=== PATIENT | male | born 1965 | race Asian ===

== ENCOUNTER → 2024-12-17 14:06 | Outpatient (CLI) | payer OTHER, SELFPAY ==
--- NOTE | 2024-12-17 14:10 | DI.CT.S_ITS ---
PROCEDURE: CT LUNG LOW DOSE SCREENING INDICATIONS: hx of tobacco use TECHNIQUE: Noncontrast 2.0-2.5 mm thick sections acquired from the pulmonary apices to the posterior costophrenic angles. 7 mm thick axial MIP, and 5 mm coronal and sagittal reformats were then acquired. For radiation dose reduction, the following was used: automated exposure control, adjustment of mA and/or kV according to patient size. COMPARISON: None. FINDINGS: Image quality: Diagnostic. Lower Neck: No enlarged lymph nodes. Thyroid: No thyroid nodules which require sonographic follow up, per consensus guidelines. Axillae: No enlarged lymph nodes. Chest Wall: Unremarkable. Bones: No aggressive appearing bony lesions. Lungs and Pleura: No pneumothorax or pleural effusions. No consolidations. 3 mm solid nodule in anterior periphery of right upper lobe series 3, image 108. 5 mm solid nodule in anterior right upper lobe series 3, image 138. 2 mm solid nodule in right upper lobe series 3, image 137. 5 mm solid nodule in right middle lobe series 3, image 151 5 mm solid nodule in posterior medial aspect of right lower lobe series 3, image 192. 3 mm solid nodule is seen in right lower lobe posterior aspect air is 3 image 181. No suspicious left lung nodule is seen. Heart: Heart size is normal. No pericardial effusion. Thoracic Vessels: The aorta and pulmonary arteries demonstrate normal size. 2 vessel coronary artery atherosclerotic calcifications are seen. Mediastinum and Marilou: No enlarged lymph nodes. Esophagus: No wall thickening. No hiatal hernia. Upper Abdomen: Visualized upper abdomen solid organs and bowel loops appear normal. IMPRESSION: Multiple right-sided pulmonary nodules measures up to 5 mm in size as described above. No suspicious pulmonary nodules are noted. LUNG-RADS 2; continued annual screening, if eligible. Clinically Significant Non-pulmonary Findings: Moderate 2 vessel coronary artery atherosclerotic calcifications. Dictated by: Randy Craven M.D. on 12/17/2024 at 18:48 Approved by: Randy Craven M.D. on 12/17/2024 at 18:55
== END ==
PROVIDERS: Referring Provider Family Medicine; Visit Provider Family Medicine
DX: Z12.2 Encounter for screening for malignant neoplasm of respiratory organs (principal); Z87.891 Personal history of nicotine dependence; R91.8 Other nonspecific abnormal finding of lung field; I25.10 Atherosclerotic heart disease of native coronary artery without angina pectoris
CPT/HCPCS: 71271

== ENCOUNTER → 2025-03-27 14:50 | Outpatient (CLI) | payer OTHER, SELFPAY ==
[2025-03-27 15:53] LABS: Add Manual Diff / Slide Review NO; Hematocrit 48.4 % (41-53); Hemoglobin 16.7 g/dL (13.5-17.5); Lymphocytes Absolute Auto 2000 /uL (1100-4500); Mean Corpuscular HGB Conc 34.4 % (30-36); Mean Corpuscular Hemoglobin 30.9 PG (26-34); Mean Corpuscular Volume 89.7 fL (80-100); Platelet Count 239 X10^3/uL (150-400)
== END ==
PROVIDERS: Referring Provider Internal Medicine; Visit Provider Internal Medicine
DX: R06.02 Shortness of breath (principal)
CPT/HCPCS: 36415; 85025

== ENCOUNTER → 2025-04-23 12:12 | Outpatient (CLI) | payer OTHER, SELFPAY ==
[2025-04-25 19:11] LABS: Alder IgE <0.10 kU/L (Class 0); Alternaria alternata IgE <0.10 kU/L (Class 0); Box Elder IgE <0.10 kU/L (Class 0); Codfish Allergy IgE < 0.10 kU/L (Class 0); D farinae IgE <0.10 kU/L (Class 0); D pteronyssinus IgE <0.10 kU/L (Class 0); Hazelnut IgE <0.10 kU/L (Class 0); Mouse Urine Proteins IgE <0.10 kU/L (Class 0); Pigweed, Common IgE <0.10 kU/L (Class 0); Ragweed, Short 0.23 kU/L (Class 0/I); Salmon Allergy IgE < 0.10 kU/L (Class 0); Scallop Allergy IgE < 0.10 kU/L (Class 0); Sesame seed Allergy IgE < 0.10 kU/L (Class 0); Tuna Allergy IgE < 0.10 kU/L (Class 0); Walnut Allery IgE < 0.10 kU/L (Class 0); Wheat Allergy IgE < 0.10 kU/L (Class 0)
== END ==
PROVIDERS: Referring Provider Internal Medicine; Visit Provider Internal Medicine
DX: Z91.09 Other allergy status, other than to drugs and biological substances (principal)
CPT/HCPCS: 36415; 82785; 86003

== ENCOUNTER 2025-08-19 09:04 | Emergency (ER) | payer OTHER, SELFPAY ==
[2025-08-19 09:17] VITALS: BP 163/82; PULSE 85; RESP 18; TEMP 36.2; O2SAT 96; BMI 29.0
--- NOTE | 2025-08-19 09:22 | ED.EYEPROB ---
HPI - Eye Problem General Chief complaint: Eye Problems Stated complaint: swollen Left eye 3 days Time Seen by Provider: 08/19/25 09:18 History of Present Illness HPI Narrative: Patient is a 59-year-old man who presents with 1 day history of right upper eyelid swelling. He denies any vision changes, eye pain, no headaches. Related Data Home Medications ?Medication ?Instructions ?Recorded ?Confirmed aspirin 81 mg tablet 81 mg PO DAILY 03/27/25 05/25/25 empagliflozin 10 mg tablet 10 mg PO DAILY 03/27/25 05/25/25 (Jardiance) hydrochlorothiazide 25 mg tablet 25 mg PO DAILY 03/27/25 05/25/25 metoprolol succinate 25 mg 25 mg PO DAILY 03/27/25 05/25/25 tablet,extended release 24 hr nitroglycerin 0.3 mg sublingual 0.3 mg sublingual ONCE 03/27/25 05/25/25 tablet olopatadine 0.1 % eye drops drp EYE-BOTH 03/27/25 05/25/25 rosuvastatin 5 mg tablet 5 mg PO DAILY 03/27/25 05/25/25 sitagliptin phos 50 mg-metformin 2 tab PO DAILY 03/27/25 05/25/25 ER 1,000 mg tablet,extend rel 24h mp (Janumet XR) valsartan 160 mg tablet 160 mg PO BID 03/27/25 05/25/25 Previous Rx's ?Medication ?Instructions ?Recorded fluticasone fur. 200 mcg-umeclid 1 inh inhalation DAILY #60 ea 05/25/25 62.5 mcg-vilant 25 mcg inhalat.powder (Trelegy Ellipta) Allergies Allergy/AdvReac Type Severity Reaction Status Date / Time No Known Drug Allergies Allergy Verified 08/19/25 09:19 Review of Systems Review of Systems ROS Unobtainable: All systems reviewed & are unremarkable except as noted in HPI and below Patient History Social History Smoking Status: Former smoker Exam Narrative Exam Narrative: Vitals:? Afebrile, hypertensive, all other vitals within normal range. Gen:? Well-developed, well-nourished, no acute distress Eye: Pupils equal round and reactive, EOMI without any pain, left upperwith a localized, tender, erythematous nodule consistent with a hordeolum. There is mild surrounding eyelid edema present. No fluctuance or purulent drainage noted. No conjunctival injection or chemosis. No proptosis, visual acuity grossly intact. Cards:? Regular Pulm:? No increased work of breathing Abd:? Nondistended Neuro:? A&O x4, cranial nerves grossly intact, moving all 4 extremities spontaneously Psych:? Appropriate Initial Vital Signs Initial Vital Signs: Vital Signs Temperature 97.2 F L 08/19/25 09:17 Pulse Rate 85 08/19/25 09:17 Respiratory Rate 18 08/19/25 09:17 Blood Pressure 163/82 H 08/19/25 09:17 Pulse Oximetry 96 08/19/25 09:17 Oxygen Delivery Method Room Air 08/19/25 09:17 MDM - Eye Problem MDM Narrative Medical decision making narrative: The patient presents with a one day history of localized eyelid swelling and tenderness consistent with a hordeolum. Differential diagnosis considered includes chalazion, preseptal cellulitis, orbital cellulitis, allergic reaction, and conjunctivitis. On exam, swelling is confined to the eyelid margin with a focal tender nodule, no fluctuance, no purulent drainage, no conjunctival injection, no pain with extraocular movements, and no visual changes, making orbital or preseptal cellulitis unlikely. No imaging or laboratory studies were indicated based on the benign appearance and absence of systemic symptoms. Warm compresses and supportive care were discussed. The patient was advised that symptoms typically improve over several days. The presentation is most consistent with an uncomplicated external hordeolum. Disposition / ED Course Summary: The patient remained well appearing and hemodynamically stable throughout the visit. Exam findings were consistent with an uncomplicated external hordeolum without evidence of preseptal or orbital cellulitis. No imaging or laboratory studies were indicated. Symptoms improved with supportive care in the ED. The patient is appropriate for discharge with outpatient management. Discharge Instructions / Return Precautions: Warm compresses were recommended several times daily. The patient was advised to avoid squeezing or manipulating the lesion. He was instructed to return for worsening swelling, spreading redness, fever, vision changes, pain with eye movement, inability to open the eye, or any new concerning symptoms. Follow up with primary care or ophthalmology was recommended if symptoms do not improve over the next few days. Discharge Plan Departure Patient Disposition: Home Clinical Impression: Hordeolum external Instructions: DI for Hordeolum Activity Restrictions/Additional Instructions: You were seen in the ER for left eye swelling. And diagnosed with: You have a hordeolum, commonly called a stye. It?s a small, localized infection of an eyelid gland. It often looks like a red, tender bump on the eyelid. Most styes improve on their own with simple home care. How to Care for It at Home Warm Compresses Apply a warm, moist compress to the affected eyelid. Keep it in place for 5?10 minutes, 3?4 times a day. This helps open the blocked gland and speeds healing. Eyelid Hygiene After warm compresses, gently clean the eyelid. Use diluted baby shampoo or a commercial eyelid cleanser on a clean cotton swab. Do this once or twice daily. Do NOT Do not squeeze, pop, or pick at the stye. Do not wear eye makeup until it has healed. Do not wear contact lenses until the eye is fully comfortable and the stye has resolved. Medications Use any prescribed medications exactly as directed. Most styes do not require antibiotics unless your clinician has recommended them. Follow up with your primary care provider in a week to ensure that your symptoms improved. Return to the ER if you develop any new or worsening symptoms to include worsening eye pain, worsening redness, or development of fevers, chills, nausea or vomiting. Prescriptions: No Action Trelegy Ellipta 200-62.5-25 mcg blister with device 1 inh inhalation DAILY Qty: 60 11RF Rx Instructions: rinse mouth with water, gargle and spit after each use nitroglycerin 0.3 mg tablet, sublingual 0.3 mg sublingual ONCE Rx Instructions: as a single dose; administer 5-10 minutes before situation known to precipitate angina attack olopatadine 0.1 % drops EYE-BOTH aspirin 81 mg tablet 81 mg PO DAILY hydrochlorothiazide 25 mg tablet 25 mg PO DAILY metoprolol succinate 25 mg tablet extended release 24 hr 25 mg PO DAILY valsartan 160 mg tablet 160 mg PO BID rosuvastatin 5 mg tablet 5 mg PO DAILY Janumet XR 50-1,000 mg tablet, ER multiphase 24 hr 2 tab PO DAILY Jardiance 10 mg tablet 10 mg PO DAILY Referrals: Ehsan Spicer MD [Primary Care Provider, Family Practice] Stand Alone Forms: Patient Portal/API
== END 2025-08-19 09:25 | disposition home or self-care (01) ==
PROVIDERS: Emergency Provider Student in an Organized Health Care Education/Training Program; PCP Family Medicine
DX: H00.011 Hordeolum externum right upper eyelid (principal)
CPT/HCPCS: 99281